=== PATIENT | female | born 2000 | race Caucasian/White ===

== ENCOUNTER 2021-11-05 10:10 | Emergency (ER) | payer SELFPAY ==
[~2021-11-05] VITALS: Ht 170.2 cm; Wt 50.0 kg
[2021-11-05 10:30] VITALS: TEMP 98.4
[2021-11-05 11:23] LABS: BASO % 0.3 % (0.0-2.0); EOS # 0.1 K/mm3 (0.0-0.7); EOS % 0.4 % (0.0-4.0); GRAN # 8.5 K/mm3 (1.4-6.5); GRAN % 76.6 % (42.2-75.2); HEMATOCRIT 42.1 % (37.0-47.0); HEMOGLOBIN 15.2 g/dl (12.5-16.0); LYMPH # 1.9 K/mm3 (1.2-3.4); LYMPH % 16.7 % (20.0-51.0); MEAN CELL VOLUME 88 fl (80.0-100.0); MEAN CORPUSCULAR HEMOGLOBIN 32 pg (27-31); MEAN CORPUSCULAR HGB CONC 36 g/dl (33.0-37.0); MONO # 0.6 K/mm3 (0.1-0.6); MONO % 5.6 % (1.7-9.3); PLATELET COUNT 311 K/mm3 (130-400); RED BLOOD COUNT 4.77 M/mm3 (4.10-5.30); REDCELL DISTRIBUTION WIDTH-CV 11.5 % (11.5-14.5)
[2021-11-05 11:25] LABS: COLLECTION METHOD CLEAN CATCH
[2021-11-05 11:36] LABS: MUCOUS Present (NOT PRESENT); URINE BACTERIA Rare /hpf (NONE SEEN); URINE RBC 0-2 /hpf (0-2)
[2021-11-05 11:36] LABS: ALBUMIN 4.2 gm/dL (3.5-5.0); BILIRUBIN,TOTAL 0.9 mg/dL (0.2-1.2); C-REACTIVE PROTEIN 0.23 mg/dL (0.00-0.50); CALCIUM 9.9 mg/dL (8.4-10.2); CREATININE, serum 0.84 mg/dL (0.57-1.11); TOTAL PROTEIN 8.1 gm/dL (6.2-8.1)
[2021-11-05 11:37] LABS: PH 6.5 (5.0-8.5); URINE APPEARANCE Clear (CLEAR/HAZY); URINE COLOR Amber (YELLOW); URINE GLUCOSE Negative (NEGATIVE); URINE KETONE 3+ (NEGATIVE); URINE PROTEIN(semi-quant) 2+ (NEGATIVE)
[2021-11-05 11:37] LABS: POTASSIUM 2.5 mmol/L (3.5-4.5)
[2021-11-05 11:38] LABS: URINE BLOOD TRACE-INTACT (NEGATIVE); URINE NITRATE Negative (NEGATIVE); URINE UROBILINOGEN 0.2 E.U/dL (0.2-1.0)
[2021-11-05] MEDS ORDERED: K-DUR20 MEQ PO (12:51)
[2021-11-05] MEDS ORDERED: PROMETHAZINE12.5 M5 PO (12:51)
[2021-11-05] MEDS ORDERED: MACROBID 1100 MG/CAP PO (13:04)
[2021-11-05 14:10] VITALS: BP 128/71; PULSE 80
== END 2021-11-05 14:20 | disposition home or self-care (01) ==
LOC: COL.ER 10:10
PROVIDERS: Physician Assistant
DX: O21.0 Mild hyperemesis gravidarum (principal); O99.280 Endocrine, nutritional and metabolic diseases complicating pregnancy, unspecified trimester; E87.6 Hypokalemia; Z87.19 Personal history of other diseases of the digestive system; Z79.899 Other long term (current) drug therapy; Z3A.00 Weeks of gestation of pregnancy not specified
CPT/HCPCS: J0696; J2405; J3480; J7030